=== PATIENT | male | born 1960 | race Caucasian/White ===

== ENCOUNTER 2019-06-05 11:48 | Outpatient (RCR) | payer OTHER | END 2019-06-07 | LOC: PT 11:48 | PROVIDERS: ATTEND Internal Medicine Interventional Cardiology | DX: I69.30 Unspecified sequelae of cerebral infarction (principal); R48.8 Other symbolic dysfunctions; R41.89 Other symptoms and signs involving cognitive functions and awareness | CPT/HCPCS: 92523 ==

== ENCOUNTER 2019-06-22 12:53 | Outpatient (RCR) | payer OTHER ==
--- NOTE | 2019-06-14 11:54 | NUR ---
ST Note: Returned a call from pt's spouse. Mrs. Garcia wanted to know if pt could come to treatment one time per week for two hours rather than twice a week for one hour sessions. Provided ed re: inefficiency of treatment for a two-hour chunk of time and that Mr. Garcia can barely tolerate one hour at a time. Also discussed for intervention more than once per week for treatment to be beneficial. Additionally, the outpatient schedule does not allow for one patient to have a two hour time block. Mrs. Garcia indicated that she understood. Also discussed that, during Mr. Garcia's last treatment session, patient stated several times that he did not need any help with the subject areas being addressed and that he was "beyond" the stimuli presented. Edcuated Mrs. Garcia that progress in treatment would be limited by pt's openness and participation. Mrs. Garcia agreed, and also agreed that Mr. Garcia needs treatment more than he thinks or will admit that he does. Mrs. Garcia stated she would speak with her about the need for treatment twice per week for one hour sessions and having a better attitude about treatment.
--- NOTE | 2019-06-22 14:31 | NUR ---
Speech Therapy Discharge Note S.Pt seen with no family present. No c/o pain. O.Pt seen for speech and language therapy secondary to mild receptive, mild to moderate expressive, and moderate to severe cognitive deficits. Short term goals and progress follow: 1.Pt to utilize semantic matrix I to improve anomia to 95% accuracynot addressed. 2.Pt to recall 3 target word immediately and with 5 and 10 minute delays with 80% accuracypt recalled three words that were not reviewed or prepped 3/3 immediately, 1/3 with 5 minute delay, 3/3 with 10 minute delay, and 2/3 with 15 minute delay. 3.Pt to recall 3-5 details from short paragraph read aloud independently or read aloud by SLPpt recalled details from sentences read aloud by CASE COORDINATOR with 50% accuracy. During this activity the patient interrupted the information being presented to state that he will never need this type of skill at work. When asked if information was ever presented and expected to be remembered verbally he said yes, but then admitted that he never writes anything down. He proceeded to say that the exercise had benefit if someone was retarded or brain injured but that did not apply to him. 4.Pt to name 10 common and abstract items from a category in 60 seconds with 80% accuracynot addressed. 5.Pt to keep calendar and daily To-Do list at homenot addressed 6.Pt to participate in executive function tasks to plan and problem solve with 80% accuracypt completed simple math story problems with the use of a calculator with 70% accuracy. He had difficulty using the calculator and blamed his medications on his difficulty thinking and solving problems. Pt did not complete any assigned homework since last session and said he was confident in his ability to perform the types of mathematical equations required at his job. When asked about scheduling more therapy appointments pt stated I dont want to come back. A.Language and cognitive deficits persist. Provided ed as indicated and able. Provided continued homework activities to improve problem-solving and memory. Pt indicated understanding. P.Will discontinue therapy at this time due to patients desires. Pt would benefit from continued treatment once he comes to terms with his deficits and agrees to be more compliant with therapeutic stimuli and assigned homework. Ralph Benson. [facility]-CASE COORDIN[facility] Date of Session: 06/22/19 Speech and Language Therapy X 56 minutes
[2019-07-06] MEDS ORDERED: HEPARIN SOD (PORCINE) 1000 UNIT/ML 30ML ONE (11:31)
[2019-07-06] MEDS ORDERED: VERAPAMIL HCL 2.5 MG/ML 2 ML VIAL ONE (11:32)
[2019-07-06] MEDS ORDERED: MIDAZOLAM HCL 2 MG/2 ML VIAL ONE (11:32)
[2019-07-06] MEDS ORDERED: ALPRAZOLAM 0.5 MG TAB ONE (11:33)
[2019-07-06] MEDS ORDERED: LIDOCAINE HCL 2% LOCAL 20 ML VIAL ONE (11:33)
[2019-07-06] MEDS ORDERED: FENTANYL CITRATE/PF 100MCG/2 ML INJ ONE (11:33)
[2019-07-06] MEDS ORDERED: DIPHENHYDRAMINE HCL 25 MG CAP ONE (11:33)
[2019-07-06] MEDS ORDERED: HEPARIN SOD/SOD CHLORIDE 0 ML ONE (11:34)
[2019-07-06] MEDS ORDERED: IOPAMIDOL 370 MG/ML 200 ML INFUS..BTL INJ ONE (11:34)
[2019-07-06] MEDS ORDERED: SODIUM CHLORIDE 0.9% 1000ML 0 ML ONE (11:34)
[2019-07-06] MEDS ORDERED: NITROGLYCERIN/D5W 200 MCG/ML 0 ML ONE (11:34)
== END 2019-07-07 ==
LOC: ST 12:53
PROVIDERS: ATTEND Internal Medicine Interventional Cardiology
DX: R41.89 Other symptoms and signs involving cognitive functions and awareness (principal); F80.89 Other developmental disorders of speech and language; Z86.73 Personal history of transient ischemic attack (TIA), and cerebral infarction without residual deficits
CPT/HCPCS: J1644; J2001; J2250; J3010; J7030; Q9967